=== PATIENT | male | born 1960 | race Caucasian/White ===

== ENCOUNTER 2021-09-06 07:58 | Inpatient (IN) | payer OTHER ==
[~2021-09-06] VITALS: Ht 177.8 cm; Wt 154.4 kg
[2021-09-06 08:01] VITALS: BP_SYST 151
[2021-09-06] MEDS ORDERED: dilTIAZem HCL IVP 5 MG/ML VIAL IVP ONE ×4 (08:15→12:00)
[2021-09-06 08:37] LABS: BASOPHILS # (AUTO) 0.2 K/uL (0.0-0.2); BASOPHILS % (AUTO) 1.6 % (0.0-2.0); EOSINOPHILS % (AUTO) 0.3 % (0.0-4.0); HEMATOCRIT 43.6 % (36-54); HEMOGLOBIN 14.6 g/dL (14.0-18.0); LYMPHOCYTES # (AUTO) 1.1 K/uL (1.0-5.5); LYMPHOCYTES % (AUTO) 10.2 % (20.5-51.5); MEAN CORPUSCULAR HEMOGLOBIN 31 pg (27-31); MEAN CORPUSCULAR HGB CONC 34 % (32-36); MEAN CORPUSCULAR VOLUME 93 fL (79.0-98.0); MONOCYTES # (AUTO) 0.9 K/uL (0.0-1.0); MONOCYTES % (AUTO) 8.3 % (1.7-9.3); NEUTROPHILS # (AUTO) 8.3 K/uL (1.8-7.7); NEUTROPHILS % (AUTO) 79.6 % (40.0-70.0); PLATELET COUNT (AUTO) 217 K/uL (130-430); RED CELL DISTRIBUTION WIDTH 14.9 % (9.0-15.0); WHITE BLOOD COUNT (AUTO) 10.5 K/uL (4.8-10.8)
[2021-09-06 08:53] LABS: ANION GAP 9 (5-15); CALCIUM 9.5 mg/dL (8.4-11.0); CHLORIDE 98 mmol/L (98-107); CREATININE 1.65 mg/dL (0.55-1.30); GLUCOSE 222 mg/dL (70-99); POTASSIUM 3.7 mmol/L (3.5-5.1); SODIUM SERUM 134 mmol/L (136-145); UREA NITROGEN, BLOOD 22 mg/dL (8-21)
[2021-09-06 09:00] LABS: GFR AFRICAN AMERICAN 55 mL/min (>90)
[2021-09-06] MEDS ORDERED: LORazepam 2 MG/ML VIAL IVP ONE (09:00)
[2021-09-06 09:02] LABS: ALANINE AMINOTRANSFERASE 27 U/L (12-78); ALBUMIN 3.8 g/dL (3.4-4.8); ASPARTATE AMINOTRANSFERASE 15 U/L (10-37); TOTAL BILIRUBIN 0.5 mg/dL (0.0-1.0)
[2021-09-06 09:06] LABS: INR 1.3 (0.80-1.20); PROTHROMBIN TIME 12.6 SECS (9.5-12.5)
[2021-09-06] MEDS ORDERED: NACL 0.9% 1,000 ML IV ONE (09:15)
[2021-09-06] MEDS ORDERED: NS 500 ML IV ONE (09:45)
[2021-09-06] MEDS ORDERED: ONDANSETRON HCL 4 MG/2 ML VIAL IVP PRN (12:45)
[2021-09-06] MEDS ORDERED: LORazepam 2 MG/ML VIAL IVP PRN (12:45)
[2021-09-06] MEDS ORDERED: HYDROcodone/ACETAMIN 5-325 MG TAB (NORCO/ VICODIN) PO PRN (12:45)
[2021-09-06] MEDS ORDERED: HYDROcodone/ACETAMIN 10-325 MG TAB PO PRN (12:45)
[2021-09-06] MEDS ORDERED: ACETAMINOPHEN 325 MG TABLET PO PRN ×2 (12:45→13:00)
[2021-09-06 12:47] LABS: BILIRUBIN,URINE NEGATIVE (NEGATIVE); CLARITY/URINE CLEAR (CLEAR); COLOR,URINE YELLOW (YELLOW); GLUCOSE,URINE NEGATIVE (NEGATIVE); KETONES,URINE NEGATIVE (NEGATIVE); LEUKOCYTE ESTERASE ,URINE NEGATIVE (NEGATIVE); NITRITE, URINE NEGATIVE (NEGATIVE); PH,URINE 5.5 (5.0-8.0); PROTEIN URINE 1+ (NEGATIVE)
[2021-09-06 12:52] LABS: BLOOD, URINE TRACE (NEGATIVE)
[2021-09-06 13:05] LABS: BACTERIA,URINE RARE /HPF (None Seen); MUCUS,URINE 1+ /LPF (None Seen); RBC,URINE 0-3 /HPF (0-3); WBC,URINE 0-3 /HPF (0-3)
[2021-09-06] MEDS: NORMAL SALINE 5 ML DISP.SYRIN IVF SCH ×2 (14:00→23:00)
[2021-09-06] MEDS ORDERED: NORMAL SALINE 5 ML DISP.SYRIN IVF SCH (14:00)
[2021-09-06] MEDS ORDERED: METF-518 PO (16:27)
[2021-09-06] MEDS ORDERED: CARV6.2554 PO (16:27)
[2021-09-06] MEDS ORDERED: RIVA20TA PO (16:27)
[2021-09-06] MEDS ORDERED: LIP40 PO (16:27)
[2021-09-06] MEDS ORDERED: AMIO100T4 PO (16:27)
[2021-09-06] MEDS ORDERED: SPIR25TA PO (16:27)
[2021-09-06] MEDS ORDERED: ALLO100T PO (16:27)
[2021-09-06] MEDS ORDERED: FURO-149 PO (16:27)
[2021-09-06] MEDS: FOLIC ACID 1 MG TABLET PO SCH (23:00)
[2021-09-06] MEDS: MULTIVITAMINS TAB 1 TABLET PO SCH (23:00)
[2021-09-07] MEDS ORDERED: AMIODARONE HCL 200 MG TABLET PO ONE (00:45)
[2021-09-07] MEDS ORDERED: LORazepam 2 MG/ML VIAL IVP ONE (02:30)
[2021-09-07 04:08] VITALS: BP_SYST 96
[2021-09-07] MEDS: NORMAL SALINE 5 ML DISP.SYRIN IVF SCH (04:36)
[2021-09-07 04:58] VITALS: BP_SYST 123
[2021-09-07 06:51] LABS: BASOPHILS # (AUTO) 0.1 K/uL (0.0-0.2); BASOPHILS % (AUTO) 0.6 % (0.0-2.0); EOSINOPHILS # (AUTO) 0.2 K/uL (0.0-0.4); EOSINOPHILS % (AUTO) 1.5 % (0.0-4.0); HEMATOCRIT 40.5 % (36-54); HEMOGLOBIN 13.5 g/dL (14.0-18.0); LYMPHOCYTES # (AUTO) 1.7 K/uL (1.0-5.5); LYMPHOCYTES % (AUTO) 16.7 % (20.5-51.5); MEAN CORPUSCULAR HEMOGLOBIN 31 pg (27-31); MEAN CORPUSCULAR HGB CONC 33 % (32-36); MEAN CORPUSCULAR VOLUME 92 fL (79.0-98.0); MONOCYTES % (AUTO) 10.3 % (1.7-9.3); NEUTROPHILS % (AUTO) 70.9 % (40.0-70.0); PLATELET COUNT (AUTO) 197 K/uL (130-430); RED BLOOD CELL COUNT(AUTO) 4.39 MIL/uL (4.2-6.2); RED CELL DISTRIBUTION WIDTH 14.7 % (9.0-15.0); WHITE BLOOD COUNT (AUTO) 9.9 K/uL (4.8-10.8)
[2021-09-07 07:41] LABS: ALBUMIN 3.2 g/dL (3.4-4.8); CALCIUM 8.2 mg/dL (8.4-11.0); CREATININE 1.24 mg/dL (0.55-1.30); PHOSPHORUS 3.6 mg/dL (2.7-4.5); POTASSIUM 3.6 mmol/L (3.5-5.1); TOTAL BILIRUBIN 0.5 mg/dL (0.0-1.0)
[2021-09-07] MEDS ORDERED: THIAMINE HCL 100 MG TABLET PO SCH (09:00)
[2021-09-07] MEDS: FOLIC ACID 1 MG TABLET PO SCH (10:00)
[2021-09-07] MEDS: MULTIVITAMINS TAB 1 TABLET PO SCH (10:00)
[2021-09-07 12:24] VITALS: BP_SYST 123
[2021-09-07] MEDS ORDERED: CARVEDILOL 6.25 MG TABLET (COREG) PO SCH (21:00)
[2021-09-08] MEDS ORDERED: ALLOPURINOL 100 MG TABLET (ZYLOPRIM) PO SCH (09:00)
[2021-09-08] MEDS ORDERED: FOLIC ACID 1 MG TABLET PO SCH (09:00)
[2021-09-08] MEDS ORDERED: FUROSEMIDE 40 MG TABLET PO SCH (09:00)
[2021-09-08] MEDS ORDERED: SPIRONOLACTONE 25 MG TABLET (ALDACTONE) PO SCH (09:00)
[2021-09-08] MEDS ORDERED: RIVAROXABAN 10 MG TABLET PO SCH (09:00)
[2021-09-08] MEDS ORDERED: ATORVASTATIN 20 MG TABLET PO SCH (09:00)
[2021-09-08] MEDS ORDERED: AMIODARONE HCL 200 MG TABLET PO SCH (09:00)
== END 2021-09-07 15:10 | disposition home or self-care (01) | DRG 308 ==
LOC: SED 07:58 → SIC 12:42 → STU 09-07 03:39
PROVIDERS: ADMIT Preventive Medicine Preventive Medicine/Occupational Environmental Medicine; ATTEND Preventive Medicine Preventive Medicine/Occupational Environmental Medicine
PROC: 5A09357 Assistance with Respiratory Ventilation, Less than 24 Consecutive Hours, Continuous Positive Airway Pressure (ICD-10-PCS; principal; 2021-09-06)
DX: I48.91 Unspecified atrial fibrillation (principal); N17.0 Acute kidney failure with tubular necrosis; I13.0 Hypertensive heart and chronic kidney disease with heart failure and stage 1 through stage 4 chronic kidney disease, or unspecified chronic kidney disease; E87.1 Hypo-osmolality and hyponatremia; I50.20 Unspecified systolic (congestive) heart failure; Z68.42 Body mass index [BMI] 45.0-49.9, adult; E66.01 Morbid (severe) obesity due to excess calories; E11.22 Type 2 diabetes mellitus with diabetic chronic kidney disease; E78.5 Hyperlipidemia, unspecified; F41.9 Anxiety disorder, unspecified; I25.10 Atherosclerotic heart disease of native coronary artery without angina pectoris; M10.9 Gout, unspecified; Z20.822 Contact with and (suspected) exposure to COVID-19; N18.9 Chronic kidney disease, unspecified; E11.65 Type 2 diabetes mellitus with hyperglycemia; I42.9 Cardiomyopathy, unspecified; G47.33 Obstructive sleep apnea (adult) (pediatric); F10.20 Alcohol dependence, uncomplicated; Z79.01 Long term (current) use of anticoagulants; Z83.3 Family history of diabetes mellitus; Z79.899 Other long term (current) drug therapy
CPT/HCPCS: 36415; 36600; 71045; 80053; 81000; 82803-TC; 82962; 83735; 83880; 84100; 84484; 85025; 85610-TC; 85730-TC; 93005; 93306; 94660; 96361; 96374; 96375; 99291; G0482; J2060; J3490; J7030; J7040